=== PATIENT | female | born 1950 | race Hispanic/Latino ===

== ENCOUNTER 2023-12-24 09:47 | Outpatient (RCR) | payer MEDICARE ==
[2023-12-24] MEDS ORDERED: LIDOCAINE VISC 2% SOLN 15 ML UDC ONE (12:34)
== END 2023-12-26 ==
LOC: WCC 09:47
PROVIDERS: ATTEND Internal Medicine Infectious Disease
DX: T81.32XA Disruption of internal operation (surgical) wound, not elsewhere classified, initial encounter (principal)
CPT/HCPCS: 36415; 82948

== ENCOUNTER 2024-01-16 02:06 | Emergency (ER) | payer MEDICARE, OTHER ==
[~2024-01-16] VITALS: Ht 157.5 cm; Wt 71.2 kg
[2024-01-16 02:11] VITALS: TEMP 98.4
[2024-01-16] MEDS: SUCRALFATE 1 GM TAB PO STA (02:37)
[2024-01-16] MEDS: FAMOTIDINE 20 MG/2 ML VIAL IV STA (02:38)
[2024-01-16] MEDS: ONDANSETRON HCL INJ 2MG/ML 2ML 2 MG/ML VIAL IV STA (02:38)
[2024-01-16] MEDS: SODIUM CHLORIDE FLUSH 10 ML SYR IV PRN (02:39)
[2024-01-16] MEDS: NITROGLYCERIN 0.4 MG SUBL SL ONE (02:40)
[2024-01-16 02:46] LABS: BASOPHILS # (AUTO) 0.1 (0.0-0.1); BASOPHILS % 0.7 % (0.0-1.0); EOSINOPHILS # (AUTO) 0.1 (0.0-0.4); EOSINOPHILS % 1.6 % (0.0-6.0); HEMATOCRIT 30.8 % (34.2-44.1); LYMPHOCYTES # (AUTO) 1.8 (1.0-3.2); LYMPHOCYTES % 19.9 % (18.0-39.1); MEAN CORPUSCULAR HGB CONC 29.2 g/dL (31-35); MEAN CORPUSCULAR VOLUME 82.1 fL (81-99); MONOCYTES # (AUTO) 0.5 (0.2-0.8); MONOCYTES % 5.5 % (4.4-11.3); NEUTROPHILS # (AUTO) 6.4 (2.1-6.9); NEUTROPHILS % 71.9 % (38.7-80.0); PLATELET COUNT 302 x10e3/uL (140-360); RED BLOOD COUNT 3.75 x10e6/uL (3.6-5.1); RED CELL DISTRIBUTION WIDTH 16.2 % (11.7-14.4); WHITE BLOOD COUNT 8.89 x10e3/uL (4.8-10.8)
[2024-01-16 02:59] LABS: ALBUMIN 3.5 g/dL (3.5-5.0); ANION GAP 13.7 mmol/L (8-16); BILIRUBIN,TOTAL 0.3 mg/dL (0.2-1.2); CALCIUM 8.9 mg/dL (8.4-10.2); CREATININE, SERUM 0.81 mg/dL (0.57-1.11); POTASSIUM 3.7 mmol/L (3.5-5.1); TOTAL PROTEIN 7.1 g/dL (6.5-8.1)
[2024-01-16 03:05] LABS: TROPONIN I 0.016 ng/mL (0-0.300)
[2024-01-16] MEDS ORDERED: IOPAMIDOL 370 MG/ML 100 ML INFUS..BTL INJ ONE (03:27)
[2024-01-16] MEDS: Vancomycin IV 1 GM in SODIUM CHLORIDE 0.9% 250ML 250 ML IV ONE (05:01)
[2024-01-16 05:25] VITALS: PULSE 76; RESP 22; O2SAT 94
== END 2024-01-16 06:00 | disposition short-term general hospital (02) ==
LOC: ER 02:17
DX: T81.31XA Disruption of external operation (surgical) wound, not elsewhere classified, initial encounter (principal); L03.313 Cellulitis of chest wall; R09.89 Other specified symptoms and signs involving the circulatory and respiratory systems; E11.65 Type 2 diabetes mellitus with hyperglycemia; I25.10 Atherosclerotic heart disease of native coronary artery without angina pectoris; Z95.1 Presence of aortocoronary bypass graft
CPT/HCPCS: 36415; 71260; 80053; 83690; 83880; 84484; 85025; 87040; 87071; 87205; 93005; 94760; 99284; J2405; J3370; J7050; Q9967

== ENCOUNTER 2024-11-03 03:20 | Emergency (ER) | payer MEDICARE, MEDICAID ==
[~2024-11-03] VITALS: Ht 157.5 cm; Wt 71.7 kg
[2024-11-03 03:40] VITALS: RESP 19; TEMP 98.2
[2024-11-03] MEDS: ONDANSETRON HCL INJ 2MG/ML 2ML 2 MG/ML VIAL IV STA (04:40)
[2024-11-03] MEDS: Morphine 4mg INJECTION 4 MG/ML INJ IV ONE (04:40)
[2024-11-03 04:47] LABS: BASOPHILS # (AUTO) 0.1 (0.0-0.1); BASOPHILS % 0.5 % (0.0-1.0); EOSINOPHILS % 0.4 % (0.0-6.0); HEMATOCRIT 47.9 % (34.2-44.1); HEMOGLOBIN 15.5 g/dL (12.0-16.0); LYMPHOCYTES # (AUTO) 1.3 (1.0-3.2); LYMPHOCYTES % 12.8 % (18.0-39.1); MEAN CORPUSCULAR HEMOGLOBIN 27.8 pg (28-32); MEAN CORPUSCULAR HGB CONC 32.4 g/dL (31-35); MONOCYTES # (AUTO) 0.3 (0.2-0.8); MONOCYTES % 3.3 % (4.4-11.3); NEUTROPHILS # (AUTO) 8.5 (2.1-6.9); NEUTROPHILS % 82.6 % (38.7-80.0); PLATELET COUNT 258 x10e3/uL (140-360); RED BLOOD COUNT 5.57 x10e6/uL (3.6-5.1); RED CELL DISTRIBUTION WIDTH 15.8 % (11.7-14.4); WHITE BLOOD COUNT 10.26 x10e3/uL (4.8-10.8)
[2024-11-03 05:04] LABS: CLARITY,URINE CLEAR (CLEAR); COLOR,URINE YELLOW (YELLOW); GLUCOSE, URINE 500 (NEGATIVE); KETONES,URINE NEGATIVE (NEGATIVE); LEUKOCYTE ESTERASE ,URINE NEGATIVE (NEGATIVE); NITRITE,URINE NEGATIVE (NEGATIVE); PH,URINE 5.5 (5 - 7); PROTEIN,URINE DIPSTICK >=300 (NEGATIVE)
[2024-11-03 05:05] LABS: BILIRUBIN,URINE NEGATIVE (NEGATIVE); URINE UROBILINOGEN 0.2 mg/dL (0.2 - 1)
[2024-11-03 05:10] LABS: ALBUMIN 3.9 g/dL (3.5-5.0); ALBUMIN/GLOBULIN RATIO 0.9 (0.8-2.0); ANION GAP 17.5 mmol/L (8-16); BILIRUBIN,TOTAL 0.5 mg/dL (0.2-1.2); CALCIUM 9.7 mg/dL (8.4-10.2); CREATININE, SERUM 1.03 mg/dL (0.57-1.11); POTASSIUM 4.5 mmol/L (3.5-5.1); TOTAL PROTEIN 8.1 g/dL (6.5-8.1)
[2024-11-03 05:23] LABS: BACTERIA,URINE MODERATE /HPF; RBC,URINE 21-50 /HPF (0-5)
[2024-11-03 05:24] LABS: EPITHELIAL CELLS,URINE MANY /LPF; RENAL EPITHELIAL CELLS,URINE FEW
[2024-11-03] MEDS ORDERED: IOPAMIDOL 370 MG/ML 100 ML INFUS..BTL INJ ONE (05:28)
[2024-11-03 05:59] VITALS: PULSE 74; O2SAT 95
[2024-11-03] MEDS ORDERED: CEFDINIR300 MG PO (07:02)
[2024-11-03] MEDS ORDERED: DICYCLOMINE HCL20 MG PO (07:02)
== END 2024-11-03 08:10 | disposition home or self-care (01) ==
LOC: ER 03:31
DX: R10.33 Periumbilical pain (principal); N39.0 Urinary tract infection, site not specified; K57.90 Diverticulosis of intestine, part unspecified, without perforation or abscess without bleeding; K59.00 Constipation, unspecified; R18.8 Other ascites; R16.0 Hepatomegaly, not elsewhere classified; I10 Essential (primary) hypertension; E11.65 Type 2 diabetes mellitus with hyperglycemia; I50.9 Heart failure, unspecified; I25.10 Atherosclerotic heart disease of native coronary artery without angina pectoris; F41.9 Anxiety disorder, unspecified; R94.31 Abnormal electrocardiogram [ECG] [EKG]; Z95.1 Presence of aortocoronary bypass graft
CPT/HCPCS: 36415; 74177; 80053; 81001; 83690; 84484; 85025; 87086; 87186; 93005; 99284; J2270; J2405; Q9967

== ENCOUNTER 2024-12-17 16:24 | Inpatient (IN) | payer MEDICARE ==
[~2024-12-17] VITALS: Ht 157.5 cm; Wt 69.9 kg
[~2024-12-17 16:24] MED LIST: CEFDINIR300 MG PO; DICYCLOMINE HCL20 MG PO
[2024-12-17 16:36] VITALS: TEMP 98.7
[2024-12-17 19:48] LABS: BASOPHILS % 0.5 % (0.0-1.0); EOSINOPHILS % 1.6 % (0.0-6.0); LYMPHOCYTES % 23.8 % (18.0-39.1); MONOCYTES % 5.1 % (4.4-11.3); NEUTROPHILS % 68.6 % (38.7-80.0); RED CELL DISTRIBUTION WIDTH 14.4 % (11.7-14.4)
[2024-12-17 20:06] LABS: AMPHETAMINES SCREEN,URINE NEGATIVE (NEGATIVE); CANNABINOIDS SCREEN,URINE NEGATIVE (NEGATIVE); COCAINE SCREEN,URINE NEGATIVE (NEGATIVE); METHADONE SCREEN, URINE NEGATIVE (NEGATIVE); OPIATES SCREEN,URINE NEGATIVE (NEGATIVE)
[2024-12-17 20:14] LABS: EST GLOMERULAR FILTRATION RATE 53.0 ML/MIN (>=60)
[2024-12-18] VITALS (10 sets, daily range): BP systolic 121–136; BP diastolic 42–59; PULSE 66–77; RESP 16–20; TEMP 97–98.2; O2SAT 93–100
[2024-12-18] MEDS: Morphine 4mg INJECTION 4 MG/ML INJ IV STA (00:49)
[2024-12-18] MEDS: ONDANSETRON HCL INJ 2MG/ML 2ML 2 MG/ML VIAL IV STA (00:49)
[2024-12-18] MEDS ORDERED: FARXIGA5 MG PO (04:06)
[2024-12-18] MEDS ORDERED: FEROSUL325 MG PO (04:06)
[2024-12-18] MEDS ORDERED: ATORVASTATIN CA20 MG PO (04:06)
[2024-12-18] MEDS ORDERED: ISOSORBIDE MONO30 MG PO (04:06)
[2024-12-18] MEDS ORDERED: METOPROLOL TART25 MG PO (04:06)
[2024-12-18] MEDS ORDERED: OMEPRAZOLE40 MG PO (04:06)
[2024-12-18 09:34] LABS: INR 1.0
[2024-12-18] MEDS ORDERED: FENTANYL CITRATE/PF 100MCG/2 ML INJ ONE (09:49)
[2024-12-18] MEDS: Morphine 4mg INJECTION 4 MG/ML INJ IV PRN (10:19)
[2024-12-18] MEDS: SODIUM CHLORIDE 0.9% 1000ML 1,000 ML IV ONE (10:20)
[2024-12-18] MEDS: PANTOPRAZOLE SOD 40 MG TABEC PO SCH (10:20)
[2024-12-18] MEDS: Vancomycin IV 1 GM in SODIUM CHLORIDE 0.9% 250ML 250 ML IV ONE (10:20)
[2024-12-18] MEDS ORDERED: IOPAMIDOL 370 MG/ML 100 ML INFUS..BTL INJ ONE (10:47)
[2024-12-18] MEDS: HYDROCODONE/APAP 7.5MG-325MG 1 EA TAB PO PRN (14:51)
[2024-12-18] MEDS: ATORVASTATIN 40 MG TAB PO SCH (21:04)
[2024-12-18] MEDS: ONDANSETRON HCL INJ 2MG/ML 2ML 2 MG/ML VIAL IV PRN (21:12)
[2024-12-19 00:57] VITALS: BP 140/52; PULSE 70; RESP 18; TEMP 98.4; O2SAT 100
[2024-12-19 07:01] LABS: EST GLOMERULAR FILTRATION RATE 55.0 ML/MIN (>=60)
[2024-12-19 07:53] LABS: BASOPHILS % 0.6 % (0.0-1.0); EOSINOPHILS % 1.9 % (0.0-6.0); LYMPHOCYTES % 22.9 % (18.0-39.1); MONOCYTES % 6.0 % (4.4-11.3); NEUTROPHILS % 68.3 % (38.7-80.0); RED CELL DISTRIBUTION WIDTH 14.2 % (11.7-14.4)
[2024-12-19 09:00] VITALS: BP 140/52; PULSE 70; RESP 18; TEMP 98.4; O2SAT 100
[2024-12-19 09:56] VITALS: BP 114/42; PULSE 65; RESP 20; TEMP 98.1; O2SAT 95
[2024-12-19 12:23] VITALS: BP 147/46; PULSE 67; RESP 19; TEMP 98.2; O2SAT 100
[2024-12-19 15:42] VITALS: BP 148/56; PULSE 81; RESP 19; TEMP 97.9; O2SAT 99
[2024-12-20] VITALS (7 sets, daily range): BP systolic 0–141; BP diastolic 0–54; PULSE 54–81; RESP 16–20; TEMP 97.6–98.6; O2SAT 94–100
[2024-12-20 07:33] LABS: CHOL/HDL RATIO 2.8 (3.0-3.6); EST GLOMERULAR FILTRATION RATE 71.0 ML/MIN (>=60); LDL CHOLESTEROL 35.0 MG/DL (60-130); PHOSPHORUS 3.2 MG/DL (2.3-4.7)
[2024-12-20] MEDS: HYDROCODONE/APAP 10MG-325MG TAB PO ONE (14:55)
[2024-12-20] MEDS ORDERED: BISACODYL 10 MG SUPP PR PRN (21:45)
[2024-12-21] VITALS (8 sets, daily range): BP systolic 106–147; BP diastolic 45–58; PULSE 59–81; RESP 16–21; TEMP 97.9–98.4; O2SAT 96–100
[2024-12-21] MEDS: MAGNESIUM HYDROXIDE 30 ML UDC PO ONE (03:22)
[2024-12-21] MEDS: DOCUSATE SODIUM 100 MG CAP PO SCH (10:01)
[2024-12-21] MEDS: POLYETHYLENE GLYCOL 3350 17 GM PACK PO SCH (10:01)
[2024-12-21] MEDS: MAGNESIUM HYDROXIDE 30 ML UDC ONE (10:02)
[2024-12-22 00:40] VITALS: BP 131/52; PULSE 78; RESP 20; TEMP 98.8; O2SAT 100
[2024-12-22 04:31] VITALS: BP 122/44; PULSE 65; RESP 17; TEMP 98.2; O2SAT 100
== END 2024-12-22 08:00 | disposition left against medical advice (07) | DRG 181 ==
LOC: ER 17:47 → ERHOLD 12-18 00:04 → MED/SURG2 12-18 03:04
PROVIDERS: ADMIT Internal Medicine; ATTEND Internal Medicine
PROC: 05HC33Z Insertion of Infusion Device into Left Basilic Vein, Percutaneous Approach (ICD-10-PCS; principal; 2024-12-20)
DX: C34.11 Malignant neoplasm of upper lobe, right bronchus or lung (principal); I50.32 Chronic diastolic (congestive) heart failure; M86.8X8 Other osteomyelitis, other site; I11.0 Hypertensive heart disease with heart failure; R07.81 Pleurodynia; R07.89 Other chest pain; I25.10 Atherosclerotic heart disease of native coronary artery without angina pectoris; Z95.1 Presence of aortocoronary bypass graft; E78.00 Pure hypercholesterolemia, unspecified; K59.09 Other constipation; Z53.29 Procedure and treatment not carried out because of patient's decision for other reasons; E11.9 Type 2 diabetes mellitus without complications; Z79.84 Long term (current) use of oral hypoglycemic drugs; K21.9 Gastro-esophageal reflux disease without esophagitis; F17.210 Nicotine dependence, cigarettes, uncomplicated; F41.9 Anxiety disorder, unspecified; M85.88 Other specified disorders of bone density and structure, other site; R63.4 Abnormal weight loss; Z68.28 Body mass index [BMI] 28.0-28.9, adult; Z71.81 Spiritual or religious counseling; Z79.899 Other long term (current) drug therapy
CPT/HCPCS: 36415; 36568; 71260; 74470; 80048; 80053; 80061; 80307; 82550; 82948; 83036; 83690; 83735; 83880; 84100; 84439; 84443; 84484; 85025; 85610; 93005; 93306; 94799; 99284; J2270; J2405; J2470; J3373; J7030; J7050; Q9967